=== PATIENT | female | born 1990 | race Caucasian/White ===

== ENCOUNTER 2018-08-03 17:57 | Observation (INO) | payer MEDICAID ==
[~2018-08-03] VITALS: Ht 152.4 cm; Wt 51.3 kg
[2018-08-03] MEDS ORDERED: PREN-55 PO (19:13)
[2018-08-03] MEDS ORDERED: LACTATED RINGERS 1,000 ML IV SCH (19:21)
[2018-08-03 20:22] LABS: BASOPHILS % 0.4 % (0.0-2.0); EOSINOPHILS % 0.1 % (0.0-5.0); HEMATOCRIT. 33.1 % (36.0-48.0); HEMOGLOBIN. 11.4 g/dL (12.0-16.0); LYMPHOCYTES % 8.6 % (20.0-50.0); MEAN CORPUSCULAR HEMOGLOBIN 30.4 pg (28.0-32.0); MEAN CORPUSCULAR VOLUME 88.7 fL (81.0-99.0); MEAN PLATELET VOLUME 7.6 fl (7.4-10.4); MONOCYTES % 7.5 % (2.0-8.0); NEUTROPHILS % 83.4 % (40.0-76.0); PLATELET 277 x1000/uL (130-400); RED BLOOD CELL COUNT 3.74 mill/uL (4.2-5.4); RED CELL DISTRIBUTION WIDTH 13.9 % (11.6-14.6)
[2018-08-03 20:24] LABS: CLARITY URINE CLOUDY (CLEAR); COLOR URINE YELLOW (YELLOW); KETONES URINE NEGATIVE (NEGATIVE); LEUKOCYTE ESTERASE URINE 3+ (NEGATIVE); NITRITE URINE NEGATIVE (NEGATIVE); OCCULT BLOOD URINE 2+ (NEGATIVE); PROTEIN URINE 2+ (NEGATIVE); SPECIFIC GRAVITY URINE 1.008 (1.005-1.030); UROBILINOGEN URINE 0.2 E.U./dL (0.2-1.0)
[2018-08-03 22:16] LABS: CHLORIDE 104 mEq/L (98-107)
[2018-08-03] MEDS: LACTATED RINGERS 1,000 ML IV SCH (22:40)
[2018-08-03] MEDS: CEFAZOLIN 1000MG PREMIX 50 ML IV SCH (22:41)
[2018-08-04] MEDS ORDERED: GENTAMICIN 100MG PREMIX 50 ML IV NR
[2018-08-04] MEDS: POTASSIUM CHLORIDE 20MEQ TABLET SR PO SCH ×2 (02:04→06:14)
[2018-08-04] MEDS: ACETAMINOPHEN 325MG TABLET PO PRN ×3 (02:49→23:17)
[2018-08-04] MEDS: CEFAZOLIN 1000MG PREMIX 50 ML IV SCH ×3 (04:28→20:23)
[2018-08-04] MEDS: GENTAMICIN 80MG PREMIX 100 ML IV SCH ×2 (07:16→16:23)
[2018-08-05] MEDS: CEFAZOLIN 1000MG PREMIX 50 ML IV SCH ×3 (02:26→14:20)
[2018-08-05] MEDS: LACTATED RINGERS 1,000 ML IV SCH (05:54)
[2018-08-05 08:11] LABS: CHLORIDE 105 mEq/L (98-107)
[2018-08-05 08:24] LABS: GENTAMICIN TROUGH 1.2 ug/mL (<2.0)
[2018-08-05] MEDS: ACETAMINOPHEN 325MG TABLET PO PRN (08:42)
[2018-08-05] MEDS: GENTAMICIN 80MG PREMIX 100 ML IV SCH ×2 (09:57)
[2018-08-05 14:37] LABS: BASOPHILS % 0.2 % (0.0-2.0); EOSINOPHILS % 0.3 % (0.0-5.0); HEMATOCRIT. 29.2 % (36.0-48.0); HEMOGLOBIN. 10.1 g/dL (12.0-16.0); LYMPHOCYTES % 12.3 % (20.0-50.0); MEAN CORPUSCULAR HEMOGLOBIN 30.8 pg (28.0-32.0); MEAN CORPUSCULAR VOLUME 89.3 fL (81.0-99.0); MEAN PLATELET VOLUME 7.9 fl (7.4-10.4); MONOCYTES % 5.6 % (2.0-8.0); NEUTROPHILS % 81.6 % (40.0-76.0); PLATELET 248 x1000/uL (130-400); RED BLOOD CELL COUNT 3.27 mill/uL (4.2-5.4); RED CELL DISTRIBUTION WIDTH 13.6 % (11.6-14.6)
== END 2018-08-05 15:10 | disposition home or self-care (01) ==
LOC: ER 18:06 → 8 EST LDRP 18:19 → INTOOBSV 18:19 → 8 EST A/PP 22:45
PROVIDERS: ADMIT Obstetrics & Gynecology; ATTEND Obstetrics & Gynecology
DX: O23.02 Infections of kidney in pregnancy, second trimester (principal); E87.6 Hypokalemia; O26.892 Other specified pregnancy related conditions, second trimester; N89.8 Other specified noninflammatory disorders of vagina; R10.9 Unspecified abdominal pain; R35.0 Frequency of micturition; Z3A.23 23 weeks gestation of pregnancy
CPT/HCPCS: 36415; 76805; 80048; 80053; 80170; 81003; 84132; 85025; 87077; 87086; 87186; 96365; 96366; 96367; 99281; G0378; J0690; J1580; J7120; 96360; 96361; 99285

== ENCOUNTER 2018-10-10 14:12 | Observation (INO) | payer MEDICAID ==
[~2018-10-10] VITALS: Ht 152.4 cm; Wt 54.9 kg
[~2018-10-10 14:12] MED LIST: PREN-55 PO
[2018-10-10 15:04] LABS: CLARITY URINE CLOUDY (CLEAR); COLOR URINE YELLOW (YELLOW); KETONES URINE TRACE (NEGATIVE); LEUKOCYTE ESTERASE URINE 1+ (NEGATIVE); NITRITE URINE NEGATIVE (NEGATIVE); OCCULT BLOOD URINE 1+ (NEGATIVE); PH URINE 6.5 (4.5-8.0); PROTEIN URINE TRACE (NEGATIVE); SPECIFIC GRAVITY URINE 1.021 (1.005-1.030)
[2018-10-10] MEDS ORDERED: ACETAMINOPHEN 500MG TABLET PO NR (15:15)
[2018-10-10] MEDS ORDERED: DEXT 5%/LACTATED RINGERS 1,000 ML IV SCH (15:15)
[2018-10-10] MEDS ORDERED: CEFAZOLIN 2,000 MG in DEXT 5% WATER 100 ML IV NR (17:00)
== END 2018-10-10 17:50 | disposition home or self-care (01) ==
LOC: 8 EST LDRP 14:12
PROVIDERS: ADMIT Obstetrics & Gynecology; ATTEND Obstetrics & Gynecology
DX: O26.893 Other specified pregnancy related conditions, third trimester (principal); R10.9 Unspecified abdominal pain; Z3A.33 33 weeks gestation of pregnancy
CPT/HCPCS: 81003; 96365; 99281; G0378; J0690; J7060; 96360; 96361

== ENCOUNTER 2018-10-19 13:31 | Observation (INO) | payer MEDICAID ==
[~2018-10-19] VITALS: Ht 152.4 cm; Wt 55.8 kg
== END 2018-10-19 16:15 | disposition home or self-care (01) ==
LOC: 8 EST LDRP 13:31
PROVIDERS: ADMIT Obstetrics & Gynecology; ATTEND Obstetrics & Gynecology
DX: O36.5930 Maternal care for other known or suspected poor fetal growth, third trimester, not applicable or unspecified (principal); Z3A.34 34 weeks gestation of pregnancy
CPT/HCPCS: 76805; 76815; 76818; 99281; G0378

== ENCOUNTER 2018-11-16 16:26 | Observation (INO) | payer MEDICAID ==
[~2018-11-16] VITALS: Ht 152.4 cm; Wt 58.1 kg
== END 2018-11-16 20:10 | disposition home or self-care (01) ==
LOC: 8 EST LDRP 16:26
PROVIDERS: ADMIT Obstetrics & Gynecology; ATTEND Obstetrics & Gynecology
DX: O36.5930 Maternal care for other known or suspected poor fetal growth, third trimester, not applicable or unspecified (principal); O36.8190 Decreased fetal movements, unspecified trimester, not applicable or unspecified; Z3A.38 38 weeks gestation of pregnancy
CPT/HCPCS: 59025; 76815; 76818; G0378

== ENCOUNTER 2018-11-19 16:27 | Inpatient (IN) | payer MEDICAID ==
[~2018-11-19] VITALS: Ht 157.5 cm; Wt 61.7 kg
[2018-11-19] MEDS ORDERED: DEXT 5%/LR + PITOCIN 20UNITS/L 1,000 ML IV SCH (18:46)
[2018-11-19] MEDS ORDERED: METHYLERGONOVINE MALEATE 0.2 MG/ML IM PRN (19:00)
[2018-11-19] MEDS ORDERED: MISOPROSTOL 200MCG TABLET VG PRN (19:00)
[2018-11-19] MEDS ORDERED: NALOXONE HCL 0.4 MG/ML 1ML VIAL IM PRN (19:00)
[2018-11-19] MEDS ORDERED: CARBOPROST TROMETHAMINE 250 MCG/ML AMPUL IM PRN (19:00)
[2018-11-19] MEDS ORDERED: LIDOCAINE HCL 1% 20ML VIAL (Pyxis) INJ INFIL PRN (19:00)
[2018-11-19] MEDS ORDERED: MISOPROSTOL 100MCG TABLET VG PRN (19:00)
[2018-11-19] MEDS ORDERED: AMPICILLIN 2,000 MG in SODIUM CHLORIDE 0.9% 100 ML IV SCH (19:30)
[2018-11-19] MEDS ORDERED: INFLUENZA VIRUS VACCINE(AFLURIA) 0.5ML SYR IM ONE (20:45)
[2018-11-19 20:48] LABS: CLARITY URINE CLEAR (CLEAR); COLOR URINE YELLOW (YELLOW); KETONES URINE NEGATIVE (NEGATIVE); LEUKOCYTE ESTERASE URINE 1+ (NEGATIVE); NITRITE URINE NEGATIVE (NEGATIVE); OCCULT BLOOD URINE 2+ (NEGATIVE); PROTEIN URINE 1+ (NEGATIVE); SPECIFIC GRAVITY URINE 1.018 (1.005-1.030); UROBILINOGEN URINE 0.2 E.U./dL (0.2-1.0)
[2018-11-19 20:53] LABS: BASOPHILS % 0.4 % (0.0-2.0); EOSINOPHILS % 0.9 % (0.0-5.0); HEMATOCRIT. 36.1 % (36.0-48.0); HEMOGLOBIN. 12.3 g/dL (12.0-16.0); LYMPHOCYTES % 24.9 % (20.0-50.0); MEAN CORPUSCULAR HEMOGLOBIN 28.9 pg (28.0-32.0); MEAN PLATELET VOLUME 8.1 fl (7.4-10.4); MONOCYTES % 6.2 % (2.0-8.0); NEUTROPHILS % 67.6 % (40.0-76.0); PLATELET 332 x1000/uL (130-400); RED BLOOD CELL COUNT 4.25 mill/uL (4.2-5.4); RED CELL DISTRIBUTION WIDTH 14.1 % (11.6-14.6)
[2018-11-19 21:01] LABS: *AMPHETAMINES SCREEN URINE NEGATIVE (NEGATIVE); *BARBITURATES SCREEN URINE NEGATIVE (NEGATIVE); *BENZODIAZEPINES SCREEN URINE NEGATIVE (NEGATIVE); *COCAINE SCREEN URINE NEGATIVE (NEGATIVE)
[2018-11-19 21:02] LABS: INR 0.9; PARTIAL THROMBOPLASTIN TIME 26.4 sec (23.4-31.0); PROTHROMBIN TIME 9.6 sec (9.6-11.0)
[2018-11-19 21:02] LABS: CANNABINOID URINE SCREEN NEGATIVE (NEGATIVE); METHADONE URINE SCREEN NEGATIVE (NEGATIVE); OPIATES URINE SCREEN NEGATIVE (NEGATIVE); PHENCYCLIDINE URINE SCREEN NEGATIVE (NEGATIVE)
[2018-11-19 21:47] LABS: HEPATITIS B SURFACE ANTIGEN NEGATIVE
[2018-11-20] MEDS: BUTORPHANOL TARTRATE 2 MG/ML VIAL IV PRN ×2 (00:09→03:48)
[2018-11-20] MEDS: LACTATED RINGERS 1,000 ML IV SCH ×2 (00:10→03:50)
[2018-11-20] MEDS ORDERED: AMPICILLIN 1,000 MG in SODIUM CHLORIDE 0.9% 50 ML IV SCH (01:30)
[2018-11-20] MEDS ORDERED: TERBUTALINE SULFATE 1MG/ML VIAL SUBCUT PRN (04:15)
[2018-11-20] MEDS ORDERED: ROPIVACAINE HCL/PF EPIDURAL 200 ML EPI SCH (05:15)
[2018-11-20] MEDS ORDERED: RHO(D) IMMUNE GLOBULIN 300 MCG/SYR IM PRN (08:30)
[2018-11-20] MEDS ORDERED: IBUPROFEN 400MG TABLET PO PRN (08:30)
[2018-11-20] MEDS: DEXT 5%/LR + PITOCIN 20UNITS/L 1,000 ML IV SCH ×2 (08:46→09:23)
[2018-11-20 09:30] VITALS: BP 113/73
[2018-11-20 10:00] VITALS: BP 110/70
[2018-11-20] MEDS: IBUPROFEN 800MG TABLET PO PRN (10:25)
[2018-11-20 10:30] VITALS: BP 113/68
[2018-11-20] MEDS ORDERED: LIDOCAINE HCL 2%/EPINEPHRINE 1:100,000 20 ML VIAL INFIL ONE (14:36)
[2018-11-20 15:50] VITALS: BP 125/69
[2018-11-20 20:12] VITALS: BP 99/54
[2018-11-21 04:32] VITALS: BP 107/64
[2018-11-21 07:10] LABS: BASOPHILS % 0.2 % (0.0-2.0); EOSINOPHILS % 0.8 % (0.0-5.0); HEMATOCRIT. 32.1 % (36.0-48.0); HEMOGLOBIN. 10.8 g/dL (12.0-16.0); LYMPHOCYTES % 22.6 % (20.0-50.0); MEAN CORPUSCULAR HEMOGLOBIN 28.5 pg (28.0-32.0); MEAN CORPUSCULAR VOLUME 84.7 fL (81.0-99.0); MEAN PLATELET VOLUME 7.9 fl (7.4-10.4); MONOCYTES % 5.2 % (2.0-8.0); NEUTROPHILS % 71.2 % (40.0-76.0); PLATELET 301 x1000/uL (130-400); RED BLOOD CELL COUNT 3.79 mill/uL (4.2-5.4); RED CELL DISTRIBUTION WIDTH 13.8 % (11.6-14.6)
[2018-11-21 08:00] VITALS: BP 110/74
[2018-11-21] MEDS ORDERED: FERR325T6 MT (10:53)
[2018-11-21] MEDS ORDERED: IBUP-2029 MT (10:53)
[2018-11-21] MEDS ORDERED: MEASLES,MUMPS&RUBELLA VACCINE 1 VIAL SUBCUT ONE (11:30)
[2018-11-21 16:00] VITALS: BP 97/54
[2018-11-21] MEDS: IBUPROFEN 800MG TABLET PO PRN (17:38)
[2018-11-21 22:00] VITALS: BP 104/60
[2018-11-22 07:31] VITALS: BP 99/64
[2018-11-22] MEDS: IBUPROFEN 800MG TABLET PO PRN (09:11)
== END 2018-11-22 14:00 | disposition home or self-care (01) | DRG 560 ==
LOC: 8 EST LDRP 16:27 → OBSVTOIN 16:27 → 8 EST A/PP 16:50 → 8 EST LDRP 18:55 → 8 EST A/PP 11-20 09:26
PROVIDERS: ADMIT Obstetrics & Gynecology; ATTEND Obstetrics & Gynecology
PROC: 10E0XZZ Delivery of Products of Conception, External Approach (ICD-10-PCS; principal; 2018-11-20)
PROC: 3E0R3BZ Introduction of Anesthetic Agent into Spinal Canal, Percutaneous Approach (ICD-10-PCS; 2018-11-20)
PROC: 00HU33Z Insertion of Infusion Device into Spinal Canal, Percutaneous Approach (ICD-10-PCS; 2018-11-20)
DX: O41.03X0 Oligohydramnios, third trimester, not applicable or unspecified (principal); Z37.0 Single live birth; Z3A.39 39 weeks gestation of pregnancy
CPT/HCPCS: 36415; 59025; 76815; 76818; 80305; 81003; 86592; 86703; 86762; 86850; 86900; 87340; 90686; 90707; J0290; J0595; J2310; J2590; J2795; J3490; J7050; A4315